=== PATIENT | male | born 1980 | race Caucasian/White ===

== ENCOUNTER 2022-12-05 10:31 | Day surgery (SDC) | payer OTHER ==
--- NOTE | 2022-12-03 10:34 | P.PN ---
Progress Note - Text Progress Note Date: 12/03/22 Contacted patient for preparation of the procedure. Bowel prep described including a rectal enema on day of presentation. Recovery also reviewed. All questions addressed.
[2022-12-03 15:14] VITALS: BMI 18.0
--- NOTE | 2022-12-05 06:51 | P.GSHP ---
History of Present Illness H&P Date: 12/05/22 CHIEF COMPLAINT: Rectal adenoma HISTORY OF PRESENT ILLNESS: The patient is a 42-year-old male who presents for rectal adenoma for over 1 to 2 months. Has rectal bleeding. Excision of rectal adenoma advised PAST MEDICAL HISTORY: Please see list. PAST SURGICAL HISTORY: Please see list. MEDICATIONS: Please see list. ALLERGIES: Please see list. SOCIAL HISTORY: No illicit drug use FAMILY HISTORY: No reports of Crohn disease or ulcerative colitis. REVIEW OF ORGAN SYSTEMS: CONSTITUTIONAL: No reports of fevers or chills. PHYSICAL EXAM: VITAL SIGNS: Stable GENERAL: Well-developed pleasant in no acute distress. HEENT: No scleral icterus. Extraocular movements grossly intact. Moist buccal mucosa. NECK: Supple without lymphadenopathy. CHEST: Unlabored respirations. Equal bilateral excursions. CARDIOVASCULAR: Regular rate and rhythm. Distal 2+ pulses. ABDOMEN: Soft, nontender, nondistended. MUSCULOSKELETAL: No clubbing, cyanosis, or edema. PATHOLOGY: Rectal adenoma ASSESSMENT: 1. Rectal adenoma PLAN: 1. Recommend proceeding with excision of rectal adenoma. Past Medical History Past Medical History: GERD/Reflux Additional Past Medical History / Comment(s): severe constipation History of Any Multi-Drug Resistant Organisms: None Reported Additional Past Surgical History / Comment(s): wisdom teeth extracted, EGD 2014,colonscopy Past Anesthesia/Blood Transfusion Reactions: No Reported Reaction Additional Past Anesthesia/Blood Transfusion Reaction / Comment(s): no blood transfusion Smoking Status: Never smoker - Past Family History Father Family Medical History: Cancer Additional Family Medical History / Comment(s): colon Mother Family Medical History: Cancer Additional Family Medical History / Comment(s): stomach Medications and Allergies Home Medications Medication Instructions Recorded Confirmed Type Famotidine [Pepcid] 20 mg PO QAM 10/21/22 12/03/22 History polyethylene glycoL 3350 [Miralax] 17 gm PO DAILY PRN 10/21/22 12/03/22 History Allergies Allergy/AdvReac Type Severity Reaction Status Date / Time No Known Allergies Allergy Verified 12/03/22 14:35
[~2022-12-05 10:31] MED LIST: ACETAMINOPHEN TAB 500 MG TAB PO PRN; HEPARIN SODIUM,PORCINE/PF 5,000 UNIT/0.5 ML SYRINGE SQ PRN; ONDANSETRON 4 MG/2 ML VIAL IVP PRN; Pre Op ABX Message 1 EACH MISC MISCELLANE ONE; metroNIDAZOLE-NS PMX 500 MG in SALINE 100 100ML.BAG IVPB PRN
[2022-12-05] MEDS ORDERED: HYDROmorphone 0.5 MG/0.5 ML SYRINGE IVP PRN (10:54)
[2022-12-05] MEDS ORDERED: LIDOCAINE 1% (10MG/ML) FOR IV START INTRADERMA PRN (10:54)
[2022-12-05] MEDS ORDERED: LACTATED RINGERS 1,000 ML IV SCH (10:54)
[2022-12-05] MEDS ORDERED: DEXAMETHASONE SOD PHOSPHATE 4 MG/ML 1 ML VIAL IV ONE (10:54)
[2022-12-05] MEDS ORDERED: ONDANSETRON 4 MG/2 ML VIAL IVP ONE (10:54)
[2022-12-05 11:39] VITALS: BP 137/89; PULSE 89; RESP 16; TEMP 97.9
[2022-12-05] MEDS: NA PHOS,M-B/NA PHOS,DI-BA 133 ML ENEMA RECTAL ONE ×2 (11:39→11:49)
[2022-12-05 11:40] LABS: Basophils % (A) 1 %; Eosinophils # (A) 0.2 k/uL (0-0.7); Eosinophils % (A) 6 %; Lymphocytes % (A) 26 %; MCH 30.9 pg (25.0-35.0); MCHC 35.3 g/dL (31.0-37.0); MCV 87.6 fL (80.0-100.0); Mean Platelet Volume 8.3; Monocytes # (A) 0.2 k/uL (0-1.0); Monocytes % (A) 5 %; Neutrophils # (A) 2.2 k/uL (1.3-7.7); Neutrophils % (A) 59 %; Platelet Count 145 k/uL (150-450); RBC 6.17 m/uL (4.30-5.90); RDW 12.2 % (11.5-15.5); WBC 3.8 k/uL (3.8-10.6)
[2022-12-05 11:54] LABS: ALT 17 U/L (4-49); AST 26 U/L (17-59); African American GFR (CKD) >90 (>60 ml/min/1.73 sqM); Albumin 5.1 g/dL (3.5-5.0); Alkaline Phosphatase 94 U/L (38-126); Anion Gap 10 mmol/L; Blood Urea Nitrogen 10 mg/dL (9-20); Calcium 9.7 mg/dL (8.4-10.2); Carbon Dioxide 31 mmol/L (22-30); Chloride 100 mmol/L (98-107); Glucose 81 mg/dL (74-99); Non-African American GFR(CKD) >90 (>60 ml/min/1.73 sqM); Potassium 4.1 mmol/L (3.5-5.1); Sodium 141 mmol/L (137-145); Total Bilirubin 1.5 mg/dL (0.2-1.3)
[2022-12-05 11:59] LABS: INR 1.1 (<1.2); Partial Thromboplastin Time 24.3 sec (22.0-30.0)
[2022-12-05 12:05] LABS: HGB 19.1 gm/dL (13.0-17.5)
--- NOTE | 2022-12-05 12:38 | P.PN ---
Subjective Progress Note Date: 12/05/22 CHIEF COMPLAINT: Rectal adenoma HISTORY OF PRESENT ILLNESS: The patient is a 42-year-old male who presented today to undergo elective excision of rectal adenoma. His father is at bedside. Patient had blood work that came back abnormal with elevated hemoglobin 19.1 and platelets low at 152. Patient denies any recent blood work done in over 2 years despite having a history of rectal bleeding. Patient reports last operation of blood over 10 years ago. Father is at bedside who denies any known hematological disorder within the family. Patient underwent bowel prep including rectal adenoma. ROS: No reports of nausea and vomiting. No fevers or chills. No new chest pain. No productive sputum PHYSICAL EXAM: VITAL SIGNS: Reviewed CONSTITUTIONAL: Well developed and in no acute distress. EYES: Conjuctivae without sclera icterus. Extraocular movements grossly intact. HEAD, EARS, NOSE, THROAT: Moist buccal mucosa. Head is atraumatic, normocephalic. Hears conversational speech. No nasal drainage. RESPIRATORY: Non-labored respirations and equal bilateral excursions. CARDIOVASCULAR: Palpable 2+ radial pulses. ABDOMEN: Scaphoid, nontender. MUSCULOSKELETAL: No gross deformity of the lower extremities noted. No clubbing. No cyanosis. SKIN: Good skin turgor. Well perfused. NEUROLOGIC: Cranial nerves II through XII grossly intact. No focal or lateralizing signs. PSYCH: Appropriate affect. Alert and oriented to person, place and time. CLINICAL LABS: Reviewed. Hemoglobin elevated 19.1, mild thrombo-cytopenia 145 ASSESSMENT: 1. Elevated hemoglobin, abnormal 2. Rectal adenoma PLAN: 1. I personally contacted director of market analysis, Dr Mccurdy regarding clinical case of new elevated hemoglobin and possible polycythemia vera, undiagnosed. Recommendation of outpatient baby aspirin daily advised. 2. Patient discussion of increased risks with surgery with undiagnosed polycyth emia vera including outpatient management with aspirin described. 3. Case cancelled for outpatient assessment with director of market analysis. Objective - Vital Signs Vital signs: Vital Signs Temp 97.9 F 12/05/22 11:38 Pulse 89 12/05/22 11:38 Resp 16 12/05/22 11:38 BP 137/89 12/05/22 11:38 Pulse Ox 100 12/05/22 11:38 FiO2 - Labs CBC & Chem 7: 12/05/22 11:26 12/05/22 11:26 Labs: Abnormal Lab Results - Last 24 Hours (Table) 12/05/22 12/05/22 Range/Units 11:26 11:26 RBC 6.17 H (4.30-5.90) m/uL Hgb 19.1 H* (13.0-17.5) gm/dL Hct 54.0 H (39.0-53.0) % Plt Count 145 L (150-450) k/uL Carbon Dioxide 31 H (22-30) mmol/L Total Bilirubin 1.5 H (0.2-1.3) mg/dL Albumin 5.1 H (3.5-5.0) g/dL
== END 2022-12-05 12:51 | disposition home or self-care (01) ==
LOC: OR 10:31
PROVIDERS: ATTEND Surgery Plastic and Reconstructive Surgery
DX: D12.8 Benign neoplasm of rectum (principal); K21.9 Gastro-esophageal reflux disease without esophagitis; Z80.0 Family history of malignant neoplasm of digestive organs; Z79.899 Other long term (current) drug therapy; Z53.9 Procedure and treatment not carried out, unspecified reason
CPT/HCPCS: 86900; 86901; 80053; 85025; 85610; 85730; 86850; J1100; J2405

== ENCOUNTER 2023-02-20 05:34 | Day surgery (SDC) | payer OTHER ==
[2023-02-17 15:46] VITALS: BMI 19.5
[~2023-02-20 05:34] MED LIST changes: -Pre Op ABX Message 1 EACH MISC MISCELLANE ONE; +metroNIDAZOLE-NS PMX 500 MG in SALINE 1 100ML.BAG IVPB PRN; -metroNIDAZOLE-NS PMX 500 MG in SALINE 100 100ML.BAG IVPB PRN
[2023-02-20] MEDS ORDERED: NA PHOS,M-B/NA PHOS,DI-BA 133 ML ENEMA RECTAL STA (05:56)
--- NOTE | 2023-02-20 06:00 | P.GSHP ---
History of Present Illness H&P Date: 02/20/23 CHIEF COMPLAINT: Rectal adenoma and rectal bleeding HISTORY OF PRESENT ILLNESS: The patient is a 42-year-old male who presents with rectal adenoma and rectal bleeding. He completed a lower endoscopy with findings of adenoma. Hhe now presents for definitive surgical intervention. PAST MEDICAL HISTORY: Please see list. PAST SURGICAL HISTORY: Please see list. MEDICATIONS: Please see list. ALLERGIES: Please see list. SOCIAL HISTORY: No illicit drug use FAMILY HISTORY: No reports of Crohn disease or ulcerative colitis. REVIEW OF ORGAN SYSTEMS: CONSTITUTIONAL: No reports of fevers or chills. PHYSICAL EXAM: VITAL SIGNS: Stable GENERAL: Well-developed pleasant in no acute distress. HEENT: No scleral icterus. Extraocular movements grossly intact. Moist buccal mucosa. NECK: Supple without lymphadenopathy. CHEST: Unlabored respirations. Equal bilateral excursions. CARDIOVASCULAR: Regular rate and rhythm. Distal 2+ pulses. ABDOMEN: Soft, nontender, nondistended. MUSCULOSKELETAL: No clubbing, cyanosis, or edema. ASSESSMENT: 1. Rectal adenoma PLAN: 1. Recommend proceeding with excision of rectal adenoma. Past Medical History Past Medical History: GERD/Reflux Additional Past Medical History / Comment(s): severe constipation History of Any Multi-Drug Resistant Organisms: None Reported Additional Past Surgical History / Comment(s): wisdom teeth extracted, EGD, colonoscopy Past Anesthesia/Blood Transfusion Reactions: No Reported Reaction Additional Past Anesthesia/Blood Transfusion Reaction / Comment(s): no blood transfusion Past Psychological History: No Psychological Hx Reported Smoking Status: Never smoker Past Alcohol Use History: None Reported Past Drug Use History: None Reported - Past Family History Father Family Medical History: Cancer Additional Family Medical History / Comment(s): colon Mother Family Medical History: Cancer Additional Family Medical History / Comment(s): stomach Medications and Allergies Home Medications Medication Instructions Recorded Confirmed Type Famotidine [Pepcid] 20 mg PO QAM 10/21/22 02/17/23 History Allergies Allergy/AdvReac Type Severity Reaction Status Date / Time No Known Allergies Allergy Verified 02/17/23 15:25
[2023-02-20] MEDS ORDERED: ONDANSETRON 4 MG/2 ML VIAL IVP ONE (06:09)
[2023-02-20] MEDS ORDERED: LACTATED RINGERS 1,000 ML IV SCH (06:09)
[2023-02-20] MEDS ORDERED: LIDOCAINE 1% (10MG/ML) FOR IV START INTRADERMA PRN (06:09)
[2023-02-20] MEDS ORDERED: HYDROmorphone 0.5 MG/0.5 ML SYRINGE IVP PRN (06:09)
[2023-02-20] MEDS ORDERED: DEXAMETHASONE SOD PHOSPHATE 4 MG/ML 1 ML VIAL IV ONE (06:09)
[2023-02-20] MEDS ORDERED: MIDAZOLAM 2 MG/2 ML VIAL IV PRN (06:09)
[2023-02-20] MEDS ORDERED: SUCCINYLCHOLINE CHLORIDE 200 MG/10 ML VIAL IV ONE (07:10)
[2023-02-20] MEDS ORDERED: PROPOFOL 10 MG/ML 20 ML VIAL IV ONE (07:10)
[2023-02-20] MEDS ORDERED: ROCURONIUM 10 MG/ML (5 ML VIAL) IV ONE (07:10)
[2023-02-20] MEDS ORDERED: GLYCOPYRROLATE 0.2 MG/ML 2 ML VIAL ONE (07:10)
[2023-02-20] MEDS ORDERED: SUGAMMADEX SODIUM 200 MG/2 ML SDV IV ONE (07:10)
[2023-02-20] MEDS ORDERED: NEOSTIGMINE 1 MG/ML 10 ML VIAL ONE (07:10)
[2023-02-20] MEDS ORDERED: LIDOCAINE 1% INJ 10MG/ML (20 ML MDV) ONE (07:10)
[2023-02-20] MEDS ORDERED: MIDAZOLAM 2 MG/2 ML VIAL ONE (07:10)
[2023-02-20] MEDS ORDERED: fentaNYL (PF) 50 MCG/ML 2 ML AMP ONE (07:10)
[2023-02-20 07:14] LABS: Basophils % (A) 1 %; Eosinophils # (A) 0.3 k/uL (0-0.7); Eosinophils % (A) 5 %; HCT 53.8 % (39.0-53.0); HGB 18.8 gm/dL (13.0-17.5); Lymphocytes % (A) 34 %; MCH 30.8 pg (25.0-35.0); MCHC 34.9 g/dL (31.0-37.0); MCV 88.3 fL (80.0-100.0); Monocytes # (A) 0.5 k/uL (0-1.0); Monocytes % (A) 8 %; Neutrophils # (A) 2.9 k/uL (1.3-7.7); Neutrophils % (A) 49 %; Platelet Count 178 k/uL (150-450); RDW 12.5 % (11.5-15.5); WBC 5.9 k/uL (3.8-10.6)
[2023-02-20] MEDS ORDERED: LIDOCAINE 0.5%-EPI 1:200,000 50 ML VIAL SQ ONE ×2 (07:48)
[2023-02-20] MEDS ORDERED: THROMBIN (BOVINE) 5,000 UNIT VIAL TOPICAL ONE (08:26)
[2023-02-20] MEDS ORDERED: GELATIN SPONGE,ABSORB (LARGE) 1 EACH SPONGE TOPICAL ONE (08:27)
[2023-02-20] MEDS ORDERED: LACTATED RINGERS 1,000 ML IV ONE (08:31)
[2023-02-20 09:10] VITALS: TEMP 96.9
[2023-02-20] MEDS ORDERED: HYDROmorphone 0.5 MG/0.5 ML SYRINGE IVP ONE (09:45)
[2023-02-20 10:55] VITALS: BP 128/83; PULSE 81; RESP 18
== END 2023-02-20 11:55 | disposition home or self-care (01) ==
LOC: OR 05:34
PROVIDERS: ATTEND Surgery Plastic and Reconstructive Surgery
DX: D12.8 Benign neoplasm of rectum (principal); K21.9 Gastro-esophageal reflux disease without esophagitis; Z79.899 Other long term (current) drug therapy
CPT/HCPCS: 85025; 88307; J2250; J0330; J1100; J2710; J0690; J2405; J2001; J3010; J2704; J1170; J1644

== ENCOUNTER 2024-10-28 19:13 | Emergency (ER) | payer OTHER ==
[2024-10-28] MEDS: SODIUM CHLORIDE 0.9% 1,000 ML IV ONE (20:39)
[2024-10-28] MEDS: FAMOTIDINE 20 MG/2 ML VIAL IV STA (20:49)
[2024-10-28] MEDS: MAG HYDROX/AL HYDROX/SIMETH 30 ML CUP PO PRN (20:49)
[2024-10-28] MEDS: LIDOCAINE VISCOUS 2% 15 ML CUP PO ONE (20:51)
[2024-10-28 20:54] LABS: Basophils # (A) 0.04 10*3/uL (0.00-0.10); Basophils % (A) 0.8 %; Eosinophils # (A) 0.05 10*3/uL (0.04-0.35); Eosinophils % (A) 1.0 %; HCT 49.6 % (39.6-50.0); HGB 17.9 g/dL (13.0-17.0); Lymphocytes # (A) 0.82 10*3/uL (0.90-5.00); Lymphocytes % (A) 16.5 %; MCH 30.5 pg (27.0-32.0); MCHC 36.1 g/dL (32.0-37.0); MCV 84.6 fL (80.0-97.0); Monocytes # (A) 0.34 10*3/uL (0.20-1.00); Monocytes % (A) 6.8 %; Neutrophils # (A) 3.71 10*3/uL (1.80-7.70); Neutrophils % (A) 74.7 %; Platelet Count 170 10*3/uL (140-440); RBC 5.86 10*6/uL (4.40-5.60); RDW 11.8 % (11.5-14.5); WBC 4.97 10*3/uL (4.50-10.00)
--- NOTE | 2024-10-28 21:05 | ED ---
Abdominal Pain HPI - General Chief Complaint: Abdominal Pain Stated Complaint: Weakness Time Seen by Provider: 10/28/24 19:57 Source: patient Mode of arrival: ambulatory - History of Present Illness Initial Comments: 44-year-old male presenting with chief complaint of abdominal pain. Patient has history of GERD, states that he has been having burning epigastric pain which is worse after eating which he attributes to his GERD. Because of this pain states that he has not been eating much, states he is only been having a few 100 bertin/day. Because of this he has been losing weight and feeling very weak. He has been seen at multiple ERs for this complaint. He was seen by his PCP yesterday who recommended that he follow-up with GI. They have not made the appointment yet. He was concerned because he was feeling weak today. No vomiting. No diarrhea. History of constipation. No black or bloody stool. - Related Data Home Medications Medication Instructions Recorded Confirmed Famotidine [Pepcid] 20 mg PO QAM 10/21/22 02/20/23 Previous Rx's Medication Instructions Recorded Acetaminophen Tab [Tylenol Tab] 1,000 mg PO Q6HR PRN #30 tablet 02/20/23 Ibuprofen [Motrin] 600 mg PO Q8HR PRN #30 tab 02/20/23 Lactulose [Cephulac] 30 ml PO DAILY #400 ml 02/20/23 metroNIDAZOLE [Flagyl] 500 mg PO TID #30 tab 02/20/23 Sucralfate [Carafate] 1 gm PO BID #30 tablet 10/28/24 Allergies Allergy/AdvReac Type Severity Reaction Status Date / Time Penicillins Allergy Rash/Hives Verified 10/28/24 19:54 Review of Systems ROS Statement: Those systems with pertinent positive or pertinent negative responses have been documented in the HPI. ROS Other: All systems not noted in ROS Statement are negative. Past Medical History Past Medical History: GERD/Reflux Additional Past Medical History / Comment(s): severe constipation History of Any Multi-Drug Resistant Organisms: None Reported Additional Past Surgical History / Comment(s): wisdom teeth extracted, EGD, colonoscopy Past Anesthesia/Blood Transfusion Reactions: No Reported Reaction Additional Past Anesthesia/Blood Transfusion Reaction / Comment(s): no blood transfusion Past Psychological History: No Psychological Hx Reported Smoking Status: Never smoker Past Alcohol Use History: None Reported Past Drug Use History: None Reported - Past Family History Father Family Medical History: Cancer Additional Family Medical History / Comment(s): colon Mother Family Medical History: Cancer Additional Family Medical History / Comment(s): stomach General Exam General appearance: alert, in no apparent distress Head exam: Present: atraumatic, normocephalic, normal inspection Eye exam: Present: normal appearance, EOMI Neck exam: Present: normal inspection. Absent: meningismus Respiratory exam: Present: normal lung sounds bilaterally. Absent: respiratory distress, wheezes, rales, rhonchi, stridor Cardiovascular Exam: Present: regular rate, normal rhythm, normal heart sounds. Absent: systolic murmur, diastolic murmur, rubs, gallop, clicks GI/Abdominal exam: Present: soft. Absent: distended, tenderness, guarding, rebound, rigid Neurological exam: Present: alert, oriented X3 Psychiatric exam: Present: normal affect, normal mood Skin exam: Present: warm, dry, normal color Course Vital Signs 10/28/24 10/28/24 19:49 22:22 Temperature 98.1 F 98.0 F Pulse Rate 105 H 83 Respiratory 18 19 Rate Blood Pressure 125/82 123/84 O2 Sat by Pulse 96 98 Oximetry Medical Decision Making - Medical Decision Making Was pt. sent in by a medical professional or institution (, PA, CHEMICAL PUMPER, urgent care, hospital, or senior care...) When possible be specific @ -No Did you speak to anyone other than the patient for history (EMS, parent, family, police, friend...)? What history was obtained from this source @ -Father Did you review nursing and triage notes (agree or disagree)? Why? @ -I reviewed and agree with nursing and triage notes Were old charts reviewed (outside hosp., previous admission, EMS record, old EKG, old radiological studies, urgent care reports/EKG's, senior care records)? Report findings @ -Reviewed CT abdomen/pelvis from [facility] that the patient's father brought to the visit, no acute process Differential Diagnosis (chest pain, altered mental status, abdominal pain women, abdominal pain men, vaginal bleeding, weakness, fever, dyspnea, syncope, headache, dizziness, GI bleed, back pain, seizure, CVA, palpatations, mental health, musculoskeletal)? @ -MDM Differential Abdominal Pain Men: Appendicitis, cholecystitis, diverticulosis, ischemic bowel, pancreatitis, hepatitis, UTI, gastroenteritis, AAA, incarcerated hernia, bowel obstruction, constipation, inflammatory bowel, hepatitis, peptic ulcer disease, splenic infarction, perforated viscus, testicular torsion... This is not meant to be an all-inclusive list EKG interpreted by me (3pts min.). @ -As above X-rays interpreted by me (1pt min.). @ -KUB shows overall nonobstructive bowel gas pattern CT interpreted by me (1pt min.). @ -None done U/S interpreted by me (1pt. min.). @ -None done What testing was considered but not performed or refused? (CT, X-rays, U/S, labs)? Why? @ -None What meds were considered but not given or refused? Why? @ -None Did you discuss the management of the patient with other professionals (professionals i.e. , PA, CHEMICAL PUMPER, lab, RT, psych nurse, social worker aide, reimbursement counselor, teacher, optics technical officer, airfield manager)? Give summary @ -No Was smoking cessation discussed for >3mins.? @ -No Was critical care preformed (if so, how long)? @ -No Were there social determinants of health that impacted care today? How? (Homelessness, low income, unemployed, alcoholism, drug addiction, transportation, low edu. Level, literacy, decrease access to med. care, usp, rehab)? @ -No Was there de-escalation of care discussed even if they declined (Discuss DNR or withdrawal of care, Hospice)? DNR status @ -No What co-morbidities impacted this encounter? (DM, HTN, Smoking, COPD, CAD, Cancer, CVA, ARF, Chemo, Hep., AIDS, mental health diagnosis, sleep apnea, morbid obesity)? @ -None Was patient admitted / discharged? Hospital course, mention meds given and route, prescriptions, significant lab abnormalities, going to OR and other pertinent info. @ -44-year-old male presenting with chief complaint of abdominal pain. Patient reports that he has not been eating much due to his GERD. He is now feeling weak and is losing weight. History and physical examination are conducted. KUB x-ray shows overall nonobstructive bowel gas pattern. Lab work requires no immediate action. Patient had a CT recently at [facility] which showed no acute process. Patient and father educated on today's findings. They were instructed by their PCP to follow-up with gastroenterology, provided them with referral. They will also be following up with the patient psychiatrist soon. Follow-up with PCP. Report back to ER with any new or worsening symptoms. Discussed return parameters and answered all questions. Patient conveyed verbal understanding and agreed to the plan. I discussed this case in detail with my attending Dr. Walls Undiagnosed new problem with uncertain prognosis? @ -No Drug Therapy requiring intensive monitoring for toxicity (Heparin, Nitro, Insulin, Cardizem)? @ -No Were any procedures done? @ -No Diagnosis/symptom? @ -abdominal pain Acute, or Chronic, or Acute on Chronic? @ -Acute Uncomplicated (without systemic symptoms) or Complicated (systemic symptoms)? @ -complicated Side effects of treatment? @ -No Exacerbation, Progression, or Severe Exacerbation? @ -No Poses a threat to life or bodily function? How? (Chest pain, [place], [place], pneumonia, PE, COPD, DKA, ARF, appy, cholecystitis, CVA, Diverticulitis, Homicidal, Suicidal, threat to staff... and all critical care pts) @ -No immediate threat at this time Diagnosis/symptom? @GERD Acute, or Chronic, or Acute on Chronic? @Acute on chronic Uncomplicated (without systemic symptoms) or Complicated (systemic symptoms)? @complicated Side effects of treatment? @None Exacerbation, Progression, or Severe Exacerbation] @No Poses a threat to life or bodily function? @No immediate threat at this time - Lab Data Result diagrams: 10/28/24 20:43 10/28/24 20:43 Lab Results 10/28/24 10/28/24 10/28/24 Range/Units 20:43 20:43 20:43 WBC 4.97 (4.50-10.00) 10*3/uL RBC 5.86 H (4.40-5.60) 10*6/uL Hgb 17.9 H (13.0-17.0) g/dL Hct 49.6 (39.6-50.0) % MCV 84.6 (80.0-97.0) fL MCH 30.5 (27.0-32.0) pg MCHC 36.1 (32.0-37.0) g/dL Plt Count 170 (140-440) 10*3/uL MPV 10.2 (9.5-12.2) fL Immature Gran % (Auto) 0.2 % Neutrophils % 74.7 % Lymphocytes % 16.5 % Monocytes % 6.8 % Eosinophils % 1.0 % Basophils % 0.8 % Immature Gran # 0.01 (0.00-0.04) 10*3/uL Neutrophils # 3.71 (1.80-7.70) 10*3/uL Lymphocytes # 0.82 L (0.90-5.00) 10*3/uL Monocytes # 0.34 (0.20-1.00) 10*3/uL Eosinophils # 0.05 (0.04-0.35) 10*3/uL Basophils # 0.04 (0.00-0.10) 10*3/uL Sodium 140 (137-145) mmol/L Potassium 4.4 (3.5-5.1) mmol/L Chloride 100 (98-107) mmol/L Carbon Dioxide 25 (22-30) mmol/L Anion Gap 15 mmol/L BUN 11 (9-20) mg/dL Creatinine 0.93 (0.66-1.25) mg/dL Est GFR (CKD-EPI)AfAm >90 (>60 ml/min/1.73 sqM) Est GFR (CKD-EPI)NonAf >90 (>60 ml/min/1.73 sqM) Glucose 89 (74-99) mg/dL Plasma Lactic Acid José Luis 1.0 (0.7-2.0) mmol/L Calcium 9.6 (8.4-10.2) mg/dL Total Bilirubin 1.2 (0.2-1.3) mg/dL AST 20 (17-59) U/L ALT 11 (4-49) U/L Alkaline Phosphatase 62 (38-126) U/L Total Protein 6.9 (6.3-8.2) g/dL Albumin 5.2 H (3.5-5.0) g/dL Amylase 62 (30-110) U/L Lipase 146 (23-300) U/L Disposition Clinical Impression: GERD (gastroesophageal reflux disease), Abdominal pain Disposition: HOME SELF-CARE Condition: Good Instructions (If sedation given, give patient instructions): GERD (Gastroesophageal Reflux Disease) (ED), Abdominal Pain (ED) Additional Instructions: Follow-up with PCP, GI, psychiatry. Report back to ER with any new or worsening symptoms. Prescriptions: Sucralfate [Carafate] 1 gm PO BID #30 tablet Is patient prescribed a controlled substance at d/c from ED?: No Referrals: Alexander Lamas MD [Primary Care Provider] - 1-2 days Peggy Kinsey MD [STAFF PHYSICIAN] - 1-2 days Time of Disposition: 21:57
[2024-10-28 21:09] LABS: ALT 11 U/L (4-49); AST 20 U/L (17-59); African American GFR (CKD) >90 (>60 ml/min/1.73 sqM); Albumin 5.2 g/dL (3.5-5.0); Alkaline Phosphatase 62 U/L (38-126); Amylase 62 U/L (30-110); Anion Gap 15 mmol/L; Blood Urea Nitrogen 11 mg/dL (9-20); Calcium 9.6 mg/dL (8.4-10.2); Carbon Dioxide 25 mmol/L (22-30); Chloride 100 mmol/L (98-107); Glucose 89 mg/dL (74-99); Lipase 146 U/L (23-300); Non-African American GFR(CKD) >90 (>60 ml/min/1.73 sqM); Potassium 4.4 mmol/L (3.5-5.1); Sodium 140 mmol/L (137-145); Total Protein 6.9 g/dL (6.3-8.2)
--- NOTE | 2024-10-28 21:45 | XR ---
EXAMINATION TYPE: XR KUB DATE OF EXAM: 10/28/2024 9:41 PM COMPARISON: None. CLINICAL INDICATION: Male, 44 years old with history of abdominal pain, TECHNIQUE: Single view of the abdomen. FINDINGS: Small bowel demonstrates no evidence for dilatation or air fluid levels. Gas and fecal material is seen in non-distended colon. No convincing evidence for pneumoperitoneum. No unusual calcifications. The lung bases are clear. The osseous structures are intact. IMPRESSION: 1. Overall nonobstructive bowel gas pattern. [facility], , 10/28/2024 9:42 PM
[2024-10-28 22:24] VITALS: BP 123/84; PULSE 83; RESP 19; TEMP 98
== END 2024-10-28 22:35 | disposition home or self-care (01) ==
LOC: EC 19:13
DX: K21.9 Gastro-esophageal reflux disease without esophagitis (principal); Z88.0 Allergy status to penicillin
CPT/HCPCS: 36415; 80053; 82150; 83605; 83690; 85025; 74018; 99284; 96374; 96361; J1308